=== PATIENT | male | born 1940 | race Caucasian/White ===

== ENCOUNTER 2019-01-22 07:34 | Day surgery (SDC) | payer MEDICARE, BC ==
[2019-01-17 13:00] VITALS: BMI 29.0
[~2019-01-22 07:34] MED LIST: LACTATED RINGERS 1,000 ML IV SCH; SODIUM CHLORIDE 0.9% 1,000 ML IV SCH
[2019-01-22 08:19] VITALS: RESP 16
[2019-01-22] MEDS ORDERED: DILTIAZEM ORAL 60 MG TAB PO STA (08:21)
[2019-01-22 08:40] LABS: Anion Gap 8 mmol/L; Blood Urea Nitrogen 23 mg/dL (9-20); Calcium 9.9 mg/dL (8.4-10.2); Carbon Dioxide 25 mmol/L (22-30); Chloride 107 mmol/L (98-107); Glucose 104 mg/dL (74-99); Sodium 140 mmol/L (137-145)
[2019-01-22 08:44] LABS: Potassium 4.8 mmol/L (3.5-5.1)
[2019-01-22] MEDS ORDERED: PROPOFOL 10 MG/ML 20 ML VIAL IV ONE (08:58)
[2019-01-22 09:26] VITALS: TEMP 97
[2019-01-22] MEDS ORDERED: SODIUM CHLORIDE 0.9% 1,000 ML IV SCH (09:30)
--- NOTE | 2019-01-22 09:44 | ECHOT ---
TRANSESOPHAGEAL ECHOCARDIOGRAM INDICATION: Typical atrial flutter. PROCEDURE NOTE: After obtaining informed consent, transesophageal echocardiogram was performed in left lateral position using an Omniplane probe. Local and IV sedation were obtained by the business test analyst. The patient tolerated the procedure well without any obvious immediate complications. FINDINGS: 1. There is no intracardiac thrombus within the left atrial appendage, left atrium, right atrium, right ventricle or left ventricle. 2. Left atrium appears mildly enlarged. Right atrium and right ventricle appear mildly enlarged. Left ventricle has normal size and systolic function with an ejection fraction of 60%. 3. Interatrial septum: There is no evidence of gjub-al-ztjaw shunt by color-flow Doppler or tisgq-gj-hiyj shunt by agitated saline contrast study. 4. Aortic valve is a 3-leaflet valve. There is no evidence of aortic stenosis or regurgitation. 5. Mitral valve shows trace mitral regurgitation. 6. Tricuspid valve shows trace tricuspid regurgitation. 7. Aorta shows ejpv-lc-kphnjxtk atherosclerotic changes. CONCLUSIONS: 1. No intracardiac thrombus. 2. Normal left ventricular function. PLAN: Proceed with cardioversion. MMODL / IJN: [id number] /
--- NOTE | 2019-01-22 09:47 | CE ---
CARDIAC ELECTROPHYSIOLOGY REPORT CARDIOVERSION NOTE: INDICATION: Typical atrial flutter. PROCEDURE: After obtaining informed consent and making sure that the patient does not have any intracardiac thrombus by transesophageal echo and adequate anticoagulation with oral anticoagulant, the patient underwent electrical cardioversion. Initially, he was shocked with 200 joules of synchronized DC current. He briefly converted to sinus rhythm, but was again going back into what appeared like atrial flutter fibrillation. I shocked him a second time following which he resumed stable sinus rhythm. Post conversion ECG will be obtained. PLAN: He will be discharged home on the anticoagulant. JOSHUA / ELIEL: [id number] /
[2019-01-22] MEDS ORDERED: SODIUM CHLORIDE 0.9% 500 ML 500 ML IV ONE (09:50)
[2019-01-22 11:25] VITALS: BP 118/68; PULSE 49
== END 2019-01-22 11:22 | disposition home or self-care (01) ==
LOC: CATHCVL 07:34
PROVIDERS: ATTEND Internal Medicine Cardiovascular Disease
DX: I48.3 Typical atrial flutter (principal); I08.1 Rheumatic disorders of both mitral and tricuspid valves; I70.0 Atherosclerosis of aorta; I10 Essential (primary) hypertension; Z72.0 Tobacco use; Z88.5 Allergy status to narcotic agent; Z88.0 Allergy status to penicillin; Z88.8 Allergy status to other drugs, medicaments and biological substances; Z79.01 Long term (current) use of anticoagulants; Z79.1 Long term (current) use of non-steroidal anti-inflammatories (NSAID); Z79.891 Long term (current) use of opiate analgesic; Z79.899 Other long term (current) drug therapy; J45.909 Unspecified asthma, uncomplicated; M06.9 Rheumatoid arthritis, unspecified; K21.9 Gastro-esophageal reflux disease without esophagitis
CPT/HCPCS: 93312; 93320; 93325; 92960; 80048; J2704

== ENCOUNTER → 2023-08-08 | Outpatient (CLI) | payer MEDICARE, BC ==
--- NOTE | 2023-08-08 21:51 | CT ---
EXAMINATION TYPE: CT lumbar spine wo con DATE OF EXAM: 08/08/2023 COMPARISON: None HISTORY: 83-year-old male M48.062, Low back pain, no injury, presurgical. TECHNIQUE: Contiguous axial scanning of the lumbar spine without IV contrast. Coronal and sagittal re constructions performed. CT DLP: 1853.3 mGycm Automated exposure control for dose reduction was used. FINDINGS: Pacer leads are noted. Strandy atelectasis or scarring in the lower lungs. Sigmoid diverticulosis. There appears to be some degenerative bony ankylosis at L5-S1. Hypertrophic facet arthropathy mid to lower lumbar spine. Degenerative disc disease L1-L5 levels with narrowed, desiccated, and bulging discs. Disc vacuum was present throughout. Most severe at L2-L3 with associated endplate sclerosis. Degenerative grade 1 retrolisthesis L1-L4 levels. Vertebral body heights are preserved. The graft-partially visualized in the lower thoracic spine. Baastrup's disease lumbar spine. There is overall moderate spinal canal stenosis L2-L3. Mild to moderate at L3-L4 and L4-L5. On the right, there is severe neuroforaminal stenosis at L3-L4, moderate to severe at L4-L5, moderate L2-L3, and mild at L5-S1. On the left, there is severe neural foraminal stenosis at L2-L3 and L4-L5. Moderate at L1-L2, L3-L4, L5-S1. IMPRESSION: 1. SEVERE DEGENERATIVE DISC DISEASE L1-L5 LEVELS, GREATEST AT L2-L3 WHERE THERE IS CORRESPONDING ENDP LATE SCLEROSIS. 2. 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 3. THERE IS DEGENERATIVE INTERBODY ANKYLOSIS INVOLVING BOTH ANTERIOR AND POSTERIOR ELEMENTS AT L5-S1. 4. POSSIBLE MODERATE SPINAL CANAL STENOSIS AT L2-L3; MILD TO MODERATE AT L3-L4 AND L4-L5. 5. VARIABLE NEUROFORAMINAL STENOSES OUTLINED ABOVE. SEVERE ON THE RIGHT AT L3-L4 AND MODERATE TO S EVERE ON THE RIGHT AT L4-L5. SEVERE ON THE LEFT AT L2-L3 AND L4-L5.
== END | disposition home or self-care (01) ==
LOC: RADCTMAIN 14:00
PROVIDERS: ATTEND Physical Medicine & Rehabilitation
DX: Z01.818 Encounter for other preprocedural examination (principal); M48.062 Spinal stenosis, lumbar region with neurogenic claudication; M43.16 Spondylolisthesis, lumbar region; M47.817 Spondylosis without myelopathy or radiculopathy, lumbosacral region; M47.816 Spondylosis without myelopathy or radiculopathy, lumbar region; M51.37 Other intervertebral disc degeneration, lumbosacral region; M51.26 Other intervertebral disc displacement, lumbar region; M41.26 Other idiopathic scoliosis, lumbar region; M96.1 Postlaminectomy syndrome, not elsewhere classified; M99.71 Connective tissue and disc stenosis of intervertebral foramina of cervical region
CPT/HCPCS: 72131

== ENCOUNTER 2023-10-26 10:04 | Day surgery (SDC) | payer MEDICARE, BC ==
[2023-10-20 12:41] VITALS: BMI 29.9
[~2023-10-26 10:04] MED LIST changes: +CLINDAMYCIN 600 MG in DEXTROSE 5% IN WATER 50 ML IVPB PRN; +DEXAMETHASONE SOD PHOSPHATE 4 MG/ML 1 ML VIAL IV ONE; +FAMOTIDINE 20 MG/2 ML VIAL IV PRN; +LIDOCAINE 1% (10MG/ML) FOR IV START INTRADERMA PRN; +ONDANSETRON 4 MG/2 ML VIAL IVP ONE; -SODIUM CHLORIDE 0.9% 1,000 ML IV SCH; +droPERidol 5 MG/2 ML VIAL IVP ONE; +fentaNYL (PF) 50 MCG/ML 2 ML AMP IV PRN
[2023-10-26] MEDS: OXYMETAZOLINE 0.05% NASL SPRAY 1 SPRAY BOTTLE EA NOSTRIL PRN ×5 (10:50→11:10)
[2023-10-26] MEDS ORDERED: SUCCINYLCHOLINE CHLORIDE 200 MG/10 ML VIAL IV ONE (12:11)
[2023-10-26] MEDS ORDERED: ePHEDrine 50 MG/ML 1 ML VIAL ONE (12:11)
[2023-10-26] MEDS ORDERED: fentaNYL (PF) 50 MCG/ML 2 ML AMP ONE (12:11)
[2023-10-26] MEDS ORDERED: PROPOFOL 10 MG/ML 20 ML VIAL IV ONE (12:11)
[2023-10-26] MEDS ORDERED: LIDOCAINE 1%-EPI 1:100,000 50 ML VIAL SUBMUCOSAL ONE ×2 (12:33)
[2023-10-26] MEDS ORDERED: BUPIVACAINE (PF) 0.5% 30 ML VIAL MISCELLANE ONE ×2 (12:33)
[2023-10-26] MEDS ORDERED: EPINEPHrine 1 MG/ML (MDV) 30 ML VIAL TOPICAL ONE (12:48)
[2023-10-26] MEDS ORDERED: FLUORESCEIN STRIPS 1 MG STRIP MISCELLANE ONE (12:48)
--- NOTE | 2023-10-26 13:14 | P.OP ---
Date of Procedure: 10/26/23 Preoperative Diagnosis: Chronic sinusitis right frontal, right ethmoid, right maxillary with right maxillary mycetoma Postoperative Diagnosis: Same Procedure(s) Performed: Functional endoscopic sinus surgery of the right frontal, total right ethmoidectomy, right maxillary antrostomy with removal of mycetoma diseased tissue Anesthesia: EMILIANO Surgeon: Haja Francisco Estimated Blood Loss (ml): 5 Pathology: other (Sinonasal) Condition: stable Disposition: PACU Indications for Procedure: Patient's been dealing with symptoms of chronic sinusitis that has not been amenable to medical therapy and sinonasal irrigations. Patient was found have chronic right frontal sinusitis ethmoid sinusitis and maxillary sinusitis with a large mycetoma and was unable to be removed in the office. Surgical removal was recommended. All risks, benefits, and alternative therapies were discussed. Consent was obtained and all questions were answered. Operative Findings: Severe disease of the right frontal ethmoid and maxillary sinus. Large mycetoma on the right Description of Procedure: Patient was taken to the operative room and placed in the supine position. A general inhalation anesthetic was administered to the patient by mask and subsequently intubated with a cuffed endotracheal tube by the department of anesthesia with a functioning IV line in place. Patient was monitored throughout the entire case by the department of anesthesia. The nose was topically decongested and anesthetized and the lining of the nose was injected with lidocaine 1% with epinephrine 1 100,000 injected the inferior middle turbinates uncinate process septum. 10 minutes were allowed wait for full vasoconstrictive effects to take place at this time and infraturbinal maxillary antrostomy was performed. We opened up the maxillary sinus on the right with endoscopic visualization utilizing a 0 [place] louise scope. The maxillary sinus was entered inferiorly and a large amount of mycetoma was removed. We then opened up the maxillary sinuses above the inferior turbinates with use of his degree [place] lousie scope probe microdebrider and Blasyl. Wide opening was obtained and large mycetoma was removed we removed a large amount of diseased tissue from the right maxillary sinus. After the right maxillary sinus was opened and all diseased tissue was removed along with removal of the mycetoma he then did a total ethmoidectomy and removed all right ethmoid septations. We followed the fovea frontalis through the basal lamella into the posterior ethmoid air cells and all diseased tissue and all ethmoid septations were removed. We then entered the frontal sinus we open the frontal sinuses we did a balloon assistance to white noted or even further then we entered the frontal sinus we remove diseased tissue and disease from the right frontal sinus and with a Samantha and joel zarate the right frontal sinus was opened wider. To summarize a right frontal sinuses opened explored and diseased tissue was removed we did a total ethmoidectomy on the right with removal of all ethmoid septations and diseased tissue we open up the maxillary sinuses both above and below the inferior turbinate we removed all mycetoma at all diseased tissue the patient tolerated this well and follow-up will be in the office in one week patient is to contact me if any problems should arise in the interim.
[2023-10-26 13:27] VITALS: TEMP 97.2
[2023-10-26 15:02] VITALS: BP 133/59; PULSE 65; RESP 18
== END 2023-10-26 14:50 | disposition home or self-care (01) ==
LOC: OR 10:04
PROVIDERS: ATTEND Otolaryngology
DX: J32.2 Chronic ethmoidal sinusitis (principal); J32.1 Chronic frontal sinusitis; B47.9 Mycetoma, unspecified
CPT/HCPCS: 30130; 31253; 31257; 31267; 87070; 87205; 87075; 87102; 87077; 87186; C1726; J0171; J0330; J1100; J2405; J3010; J3490; J2704; J0665

== ENCOUNTER 2025-02-03 15:50 | Observation (INO) | payer MEDICARE, BC ==
[2025-02-03 17:16] LABS: Basophils # (A) 0.04 10*3/uL (0.00-0.10); Basophils % (A) 0.4 %; Eosinophils # (A) 0.03 10*3/uL (0.04-0.35); Eosinophils % (A) 0.3 %; HCT 34.3 % (39.6-50.0); HGB 11.6 g/dL (13.0-17.0); Immature Platelet Fraction 6.2 % (1.1-6.1); Lymphocytes # (A) 1.23 10*3/uL (0.90-5.00); Lymphocytes % (A) 12.8 %; MCHC 33.8 g/dL (32.0-37.0); MCV 94.5 fL (80.0-97.0); Mean Platelet Volume 11.7 fL (9.5-12.2); Monocytes # (A) 1.05 10*3/uL (0.20-1.00); Monocytes % (A) 10.9 %; Neutrophils # (A) 7.16 10*3/uL (1.80-7.70); Neutrophils % (A) 74.6 %; Platelet Count 140 10*3/uL (140-440); RBC 3.63 10*6/uL (4.40-5.60); RDW 13.4 % (11.5-14.5); WBC 9.61 10*3/uL (4.50-10.00)
[2025-02-03 17:27] LABS: ALT 19 U/L (4-49); African American GFR (CKD) 69 (>60 ml/min/1.73 sqM); Albumin 3.7 g/dL (3.5-5.0); Anion Gap 7 mmol/L; Blood Urea Nitrogen 45 mg/dL (9-20); Calcium 9.3 mg/dL (8.4-10.2); Carbon Dioxide 27 mmol/L (22-30); Chloride 101 mmol/L (98-107); Creatine Kinase 65 U/L (55-170); Glucose 93 mg/dL (74-99); Non-African American GFR(CKD) 59 (>60 ml/min/1.73 sqM); Sodium 135 mmol/L (137-145); Total Bilirubin 0.8 mg/dL (0.2-1.3); Total Protein 6.4 g/dL (6.3-8.2)
--- NOTE | 2025-02-03 17:30 | XR ---
EXAMINATION TYPE: XR chest 2V DATE OF EXAM: 02/03/2025 5:25 PM COMPARISON: None TECHNIQUE: XR chest 2V Frontal and lateral views of the chest. CLINICAL INDICATION:Male, 84 years old with history of fall; pain FINDINGS: Lungs/Pleura: There is no evidence of pleural effusion, focal consolidation, or pneumothorax. Pulmonary vascularity: Unremarkable. Heart/mediastinum: Cardiomediastinal silhouette is enlarged. Atherosclerotic calcifications are seen in the aorta. Two lead cardiac conduction device overlying the left hemithorax with lead tips projec ting over the right ventricle and right atrium. Musculoskeletal: No acute osseous pathology. Degenerative changes of the thoracic spine. IMPRESSION: 1. No acute cardiopulmonary disease/process. 2. Cardiomegaly. [facility], , 02/03/2025 5:28 PM
[2025-02-03 17:31] LABS: INR 0.9 (<1.2); Prothrombin Time 10.5 sec (10.0-12.5)
--- NOTE | 2025-02-03 17:31 | XR ---
EXAMINATION TYPE: XR shoulder complete RT DATE OF EXAM: 02/03/2025 5:25 PM INDICATION: Patient age:Male; 84 years old; Reason for study: fall; pain COMPARISON: Chest radiograph of the same date. TECHNIQUE: The right shoulder was examined in AP, internally rotated and scapular Y projections. . FINDINGS: No evidence of acute osseous pathology, joint dislocation, or soft tissue swelling. AC joint arthropa thy with capsular hypertrophy. The remaining portions of the visualized chest are unremarkable. IMPRESSION: 1. No acute osseous pathology. 2. Mild AC joint arthropathy. [facility], , 02/03/2025 5:29 PM
[2025-02-03 17:32] LABS: AST 27 U/L (17-59); Magnesium 1.9 mg/dL (1.6-2.3); Phosphorus 3.2 mg/dL (2.5-4.5); Potassium 3.7 mmol/L (3.5-5.1)
[2025-02-03 17:33] LABS: Alkaline Phosphatase 81 U/L (38-126)
[2025-02-03 17:36] LABS: Partial Thromboplastin Time 20.4 sec (22.0-30.0)
--- NOTE | 2025-02-03 17:36 | CT ---
EXAMINATION TYPE: CT brain cspine wo con CT DLP: 1530.8 mGycm, Automated exposure control for dose reduction was used. DATE OF EXAM: 02/03/2025 5:24 PM COMPARISON: None.. CLINICAL INDICATION:Male, 84 years old with history of fall; fall, pain TECHNIQUE: Brain: Multiple axial CT images of the brain were obtained without IV contrast. Cspine: Axial CT images from the skull base to the inferior aspect of T2 we obtained without intraven ous contrast. Coronal and sagittal reformatted images were also reviewed. FINDINGS: Brain: Extra-axial spaces: No abnormal extra-axial fluid collections. Calcification along the falx and tento rium. Ventricular system: Within normal limits Cerebral parenchyma: Cerebral atrophy. No acute intraparenchymal hemorrhage or mass effect. The beasley -white junction is well differentiated. Scattered hypoattenuating areas are seen within the periventr icular white matter. Cerebellum: Unremarkable. Mass effect: No evidence of midline shift. Intracranial vasculature: Atherosclerotic calcifications of the intracranial vessels. Soft tissues: Normal. Calvarium/osseous structures: No depressed skull fracture. Degenerative changes of the left TMJ. Paranasal sinuses and mastoid air cells: The mastoid air cells are clear. Post surgical changes of th e bilateral maxillary sinuses and ethmoid sinuses. Minimal mucosal thickening of the left sphenoid si nus and right anterior maxillary sinus. Minimal mucosal thickening of the ethmoid sinuses. Visualized orbits: Bilateral aphakia Cervical spine: Fracture: None. Osseous structures: Multilevel degenerative disc disease changes with endplate spurring and disc oste ophyte complex's. Multilevel facet arthropathy. Vertebral alignment: Degenerative grade 1 anterolisthesis of C7 on T1. Spinal canal/Neural Foramina: Disc osteophyte complexes at C3-C4, C4-C5, C5-C6, C6-C7 with at least m ild spinal canal stenosis. Facet joint uncovertebral joint arthropathy scattered throughout the cervi micaela spine with varying degrees of neural foraminal stenosis. Neck soft tissues: Prevertebral soft tissues are within normal limits. Other: The airway is patent. The lung apices are clear. Bilateral carotid bulb calcifications. Partia l visualization of cardiac pacemaker leads. IMPRESSION: 1. No acute intracranial process. 2. Nonspecific white matter changes, likely secondary to chronic small vessel ischemic disease. 3. No evidence of cervical spine fracture. 4. Moderate multilevel degenerative disc disease. [facility], , 02/03/2025 5:34 PM
[2025-02-03] MEDS: SODIUM CHLORIDE 0.9% 1,000 ML IV ONE (17:56)
[2025-02-03 18:02] LABS: Appearance,Urine Clear (Clear); Bilirubin,Urine Negative (Negative); Blood,Urine Negative (Negative); Color,Urine Colorless; Glucose,Urine (UA) Negative (Negative); Ketones,Urine Negative (Negative); Leukocyte Esterase,Urine Negative (Negative); Nitrite,Urine Negative (Negative); Protein,Urine Negative (Negative); Specific Gravity,Urine 1.006 (1.001-1.035); Urobilinogen,Urine <2.0 mg/dL (<2.0)
--- NOTE | 2025-02-03 18:07 | ED ---
Fall HPI - General Chief Complaint: Fall Stated Complaint: Weakness Time Seen by Provider: 02/03/25 16:19 Source: patient, EMS, RN notes reviewed Mode of arrival: EMS - History of Present Illness Initial Comments: 84-year-old male with medical history significant for normal pacemaker and Watchman device. Patient reports he had abdominal discomfort yesterday and with unknown downtime. Per patient, not on anticoagulation baby aspirin. Patient's vice president safety is Dr. Los Nick. Patient reports some shortness of breath, but reports this is baseline for him. Patient reports some right shoulder pain as well. Patient denies fevers, chills, abdominal pain, urinary or bowel complaints. - Related Data Home Medications Medication Instructions Recorded Confirmed Omeprazole [PriLOSEC] 20 mg PO BID 03/26/14 02/03/25 Tamsulosin [Flomax] 0.4 mg PO DAILY 03/26/14 02/03/25 allopurinoL [Zyloprim] 300 mg PO DAILY 03/26/14 02/03/25 Losartan [Cozaar] 50 mg PO HS 07/20/15 02/03/25 Fluticasone Propionate 1 spr EA NOSTRIL DAILY 10/20/23 02/03/25 [Fluticasone Propionate Nasal [place]] Metoprolol Tartrate [Lopressor] 50 mg PO BID 10/20/23 02/03/25 Potassium Chloride [K-Tab ER] 20 meq PO DAILY 10/20/23 02/03/25 traMADol HCL 50 mg PO DAILY PRN 10/20/23 02/03/25 traZODone HCL 100 mg PO HS PRN 10/20/23 02/03/25 Aspirin 81 mg PO DAILY 02/03/25 02/03/25 Furosemide [Lasix] 20 mg PO BID 02/03/25 02/03/25 Gabapentin 300 mg PO TID 02/03/25 02/03/25 Magnesium Oxide [Mag-Ox] 400 mg PO BID 02/03/25 02/03/25 dilTIAZem HCL [Cartia Xt] 180 mg PO DAILY 02/03/25 02/03/25 metOLazone [Zaroxolyn] 5 mg PO DAILY 02/03/25 02/03/25 Allergies Allergy/AdvReac Type Severity Reaction Status Date / Time adhesive Allergy Rash/Hives Verified 02/03/25 20:23 codeine Allergy Nausea & Verified 02/03/25 20:23 Vomiting enalapril Allergy face on Verified 02/03/25 20:23 skin burned and peeled niacin Allergy Rash/Hives Verified 02/03/25 20:23 Penicillins Allergy Rash/Hives Verified 02/03/25 20:23 Review of Systems ROS Statement: Those systems with pertinent positive or pertinent negative responses have been documented in the HPI. ROS Other: All systems not noted in ROS Statement are negative. Constitutional: Denies: fever, chills ENT: Denies: ear pain, throat pain Respiratory: Reports: dyspnea. Denies: cough Cardiovascular: Denies: chest pain, palpitations Endocrine: Denies: fatigue Gastrointestinal: Denies: abdominal pain, nausea, vomiting Genitourinary: Denies: urgency, dysuria Neurological: Denies: headache, weakness Past Medical History Past Medical History: Atrial Fibrillation, Asthma, Cancer, GERD/Reflux, Hypertension, Pneumonia, Rheumatoid Arthritis (RA) Additional Past Medical History / Comment(s): gout, skin cancer History of Any Multi-Drug Resistant Organisms: None Reported Past Surgical History: Appendectomy, Back Surgery, Cholecystectomy, Tonsille ctomy Additional Past Surgical History / Comment(s): Tendon cut surgically in Lt foot, sinus surgery , small tumor removed from bone in RT hand, skin cancer removed from back Past Anesthesia/Blood Transfusion Reactions: Previous Problems w/ Anesthesia Additional Past Anesthesia/Blood Transfusion Reaction / Comment(s): severe headache post sinus surgery Past Psychological History: Anxiety Smoking Status: Former smoker Past Alcohol Use History: None Reported Past Drug Use History: None Reported - Past Family History Mother Additional Family Medical History / Comment(s): ALZHEIMER Father Family Medical History: Coronary Artery Disease (CAD) Sister(s) Family Medical History: Cancer General Exam Limitations: no limitations General appearance: alert, in no apparent distress Respiratory exam: Present: normal lung sounds bilaterally. Absent: respiratory distress, wheezes Cardiovascular Exam: Present: regular rate GI/Abdominal exam: Present: soft. Absent: distended, tenderness Neurological exam: Present: alert, oriented X3 Psychiatric exam: Present: normal affect, normal mood Skin exam: Present: other (Multiple ecchymosis noted on arms bilaterally) Course Vital Signs 02/03/25 02/03/25 02/03/25 16:01 16:17 17:57 Temperature 98.0 F Pulse Rate 66 74 60 Respiratory 16 12 12 Rate Blood Pressure 136/79 119/92 149/67 O2 Sat by Pulse 98 96 Oximetry 02/03/25 20:55 Temperature Pulse Rate 60 Respiratory 18 Rate Blood Pressure 124/69 O2 Sat by Pulse 98 Oximetry Medical Decision Making - Medical Decision Making Was pt. sent in by a medical professional or institution (, PA, SENIOR MILITARY ANALYST, urgent care, hospital, or half-way...) When possible be specific @ -No Did you speak to anyone other than the patient for history (EMS, parent, family, police, friend...)? What history was obtained from this source @ -No Did you review nursing and triage notes (agree or disagree)? Why? @ -I reviewed and agree with nursing and triage notes Were old charts reviewed (outside hosp., previous admission, EMS record, old EKG, old radiological studies, urgent care reports/EKG's, half-way records)? Report findings @ -No old charts were reviewed Differential Diagnosis? @ -Differential Syncope: Valvular disease, hypertrophic cardiomyopathy, pulmonary embolism, tamponade, tachycardia, bradycardia, [place], hypovolemia, hemorrhage, dissection, anemia, intracranial hemorrhage, seizure, hypoglycemia, carbon monoxide poisoning, this is not meant to be an all-inclusive list. EKG interpreted by me (3pts min.). @ -EKG shows paced rhythm, ventricular rate 64 bpm, QTc of 432 ms X-rays interpreted by me (1pt min.). @ -Chest x-ray shows cardiomegaly. Shoulder x-ray shows no acute pathology, mild AC joint arthropathy. CT interpreted by me (1pt min.). @ -CT brain and C-spine shows no acute intracranial process, no acute cervical spine fracture, moderate degenerative disc disease. CTA shows no evidence of pulmonary embolism, left atrial appendage occlusion device in appropriate position. U/S interpreted by me (1pt. min.). @ -None done What testing was considered but not performed or refused? (CT, X-rays, U/S, labs)? Why? @ -None What meds were considered but not given or refused? Why? @ -None Did you discuss the management of the patient with other professionals (professionals i.e. , MARIA ISABEL, SENIOR MILITARY ANALYST, lab, RT, psych nurse, sexual assault social worker, pants maker, teacher, customer service officer, case management director)? Give summary @ -Case was discussed with ED attending Dr. Swenson. Case was discussed with hospitalist Dr. Ramirez who accepted the admission. Was smoking cessation discussed for >3mins.? @ -No Was critical care preformed (if so, how long)? @ -No Were there social determinants of health that impacted care today? How? (Homelessness, low income, unemployed, alcoholism, drug addiction, transportation, low edu. Level, literacy, decrease access to med. care, custodial, rehab)? @ -No Was there de-escalation of care discussed even if they declined (Discuss DNR or withdrawal of care, Hospice)? DNR status @ -No What co-morbidities impacted this encounter? (DM, HTN, Smoking, COPD, CAD, Cancer, CVA, ARF, Chemo, Hep., AIDS, mental health diagnosis, sleep apnea, morbid obesity)? @ -Pacemaker, Watchman Was patient admitted / discharged? Hospital course, mention meds given and route, prescriptions, significant lab abnormalities, going to OR and other pertinent info. @ -Patient was admitted for observation. Cardiology was consulted for pacemaker evaluation. Undiagnosed new problem with uncertain prognosis? @ -No Drug Therapy requiring intensive monitoring for toxicity (Heparin, Nitro, Insulin, Cardizem)? @ -No Were any procedures done? @ -No Diagnosis/symptom? @ -Syncope Acute, or Chronic, or Acute on Chronic? @ -Acute Uncomplicated (without systemic symptoms) or Complicated (systemic symptoms)? @ -Default Side effects of treatment? @ -No Exacerbation, Progression, or Severe Exacerbation? @ -No Poses a threat to life or bodily function? How? (Chest pain, [place], [place], pneumonia, PE, COPD, DKA, ARF, appy, cholecystitis, CVA, Diverticulitis, Homicidal, Suicidal, threat to staff... and all critical care pts) @ -No - Lab Data Result diagrams: 02/03/25 17:10 02/03/25 17:10 Lab Results 02/03/25 02/03/25 02/03/25 Range/Units 17:10 17:10 17:10 WBC 9.61 (4.50-10.00) 10*3/uL RBC 3.63 L (4.40-5.60) 10*6/uL Hgb 11.6 L (13.0-17.0) g/dL Hct 34.3 L (39.6-50.0) % MCV 94.5 (80.0-97.0) fL MCH 32.0 (27.0-32.0) pg MCHC 33.8 (32.0-37.0) g/dL Plt Count 140 (140-440) 10*3/uL MPV 11.7 (9.5-12.2) fL Immature Gran % (Auto) 1.0 % Neutrophils % 74.6 % Lymphocytes % 12.8 % Monocytes % 10.9 % Eosinophils % 0.3 % Basophils % 0.4 % Immature Gran # 0.10 H (0.00-0.04) 10*3/uL Neutrophils # 7.16 (1.80-7.70) 10*3/uL Lymphocytes # 1.23 (0.90-5.00) 10*3/uL Monocytes # 1.05 H (0.20-1.00) 10*3/uL Eosinophils # 0.03 L (0.04-0.35) 10*3/uL Basophils # 0.04 (0.00-0.10) 10*3/uL Immature Plt Fraction 6.2 H (1.1-6.1) % PT 10.5 (10.0-12.5) sec INR 0.9 (<1.2) APTT 20.4 L (22.0-30.0) sec Sodium 135 L (137-145) mmol/L Potassium 3.7 (3.5-5.1) mmol/L Chloride 101 (98-107) mmol/L Carbon Dioxide 27 (22-30) mmol/L Anion Gap 7 mmol/L BUN 45 H (9-20) mg/dL Creatinine 1.12 (0.66-1.25) mg/dL Est GFR (CKD-EPI)AfAm 69 (>60 ml/min/1.73 sqM) Est GFR (CKD-EPI)NonAf 59 (>60 ml/min/1.73 sqM) Glucose 93 (74-99) mg/dL Calcium 9.3 (8.4-10.2) mg/dL Phosphorus 3.2 (2.5-4.5) mg/dL Magnesium 1.9 (1.6-2.3) mg/dL Total Bilirubin 0.8 (0.2-1.3) mg/dL AST 27 (17-59) U/L ALT 19 (4-49) U/L Alkaline Phosphatase 81 (38-126) U/L Creatine Kinase 65 (55-170) U/L Troponin I (0.000-0.034) ng/mL Total Protein 6.4 (6.3-8.2) g/dL Albumin 3.7 (3.5-5.0) g/dL Urine Color Urine Appearance (Clear) Urine pH (5.0-8.0) Ur Specific [place] (1.001-1.035) Urine Protein (Negative) Urine Glucose (UA) (Negative) Urine Ketones (Negative) Urine Blood (Negative) Urine Nitrite (Negative) Urine Bilirubin (Negative) Urine Urobilinogen (<2.0) mg/dL Ur Leukocyte Esterase (Negative) 02/03/25 02/03/25 Range/Units 17:10 17:51 WBC (4.50-10.00) 10*3/uL RBC (4.40-5.60) 10*6/uL Hgb (13.0-17.0) g/dL Hct (39.6-50.0) % MCV (80.0-97.0) fL MCH (27.0-32.0) pg MCHC (32.0-37.0) g/dL Plt Count (140-440) 10*3/uL MPV (9.5-12.2) fL Immature Gran % (Auto) % Neutrophils % % Lymphocytes % % Monocytes % % Eosinophils % % Basophils % % Immature Gran # (0.00-0.04) 10*3/uL Neutrophils # (1.80-7.70) 10*3/uL Lymphocytes # (0.90-5.00) 10*3/uL Monocytes # (0.20-1.00) 10*3/uL Eosinophils # (0.04-0.35) 10*3/uL Basophils # (0.00-0.10) 10*3/uL Immature Plt Fraction (1.1-6.1) % PT (10.0-12.5) sec INR (<1.2) APTT (22.0-30.0) sec Sodium (137-145) mmol/L Potassium (3.5-5.1) mmol/L Chloride (98-107) mmol/L Carbon Dioxide (22-30) mmol/L Anion Gap mmol/L BUN (9-20) mg/dL Creatinine (0.66-1.25) mg/dL Est GFR (CKD-EPI)AfAm (>60 ml/min/1.73 sqM) Est GFR (CKD-EPI)NonAf (>60 ml/min/1.73 sqM) Glucose (74-99) mg/dL Calcium (8.4-10.2) mg/dL Phosphorus (2.5-4.5) mg/dL Magnesium (1.6-2.3) mg/dL Total Bilirubin (0.2-1.3) mg/dL AST (17-59) U/L ALT (4-49) U/L Alkaline Phosphatase (38-126) U/L Creatine Kinase (55-170) U/L Troponin I 0.015 (0.000-0.034) ng/mL Total Protein (6.3-8.2) g/dL Albumin (3.5-5.0) g/dL Urine Color Colorless Urine Appearance Clear (Clear) Urine pH 6.0 (5.0-8.0) Ur Specific [place] 1.006 (1.001-1.035) Urine Protein Negative (Negative) Urine Glucose (UA) Negative (Negative) Urine Ketones Negative (Negative) Urine Blood Negative (Negative) Urine Nitrite Negative (Negative) Urine Bilirubin Negative (Negative) Urine Urobilinogen <2.0 (<2.0) mg/dL Ur Leukocyte Esterase Negative (Negative) Disposition Clinical Impression: Syncope Disposition: ADMITTED IP TO THIS [facility] Decision Date: 02/03/25 Decision Time: 19:00
--- NOTE | 2025-02-03 19:04 | CT ---
EXAMINATION TYPE: CT angio chest DATE OF EXAM: 02/03/2025 6:52 PM COMPARISON: Chest radiograph 01/26/2025. CLINICAL INDICATION: Male, 84 years old with history of Syncope; TECHNIQUE/CONTRAST: CTA scan of the thorax is performed with IV Contrast, patient injected with 80cc mL of Isovue 370, PA P images are created and reviewed these are created on a separate workstation.. CT DLP: 497.9 mGycm, Automated exposure control for dose reduction was used. FINDINGS: Lungs/Pleura: No evidence of focal consolidation, pleural effusion or pneumothorax. Airway: Large airways are patent. Heart: Cardiomegaly is demonstrated. Moderate to severe coronary artery calcifications present. Left atrial appendage occlusion device without evidence for contrast extending into the left atrial appen dage. Vasculature: There is no evidence for a filling defect within the pulmonary vasculature to suggest ac [place] pulmonary embolism. The pulmonary artery is of normal size. Mediastinum: No gross evidence of adenopathy. Musculoskeletal: Moderate disc degeneration changes are present throughout the thoracolumbar spine se condary to osteophyte formation and facet joint arthropathy. Bridging syndesmophytes anteriorly throu ghout the spine. Findings are compatible with diffuse idiopathic skeletal hyperostosis. Soft Tissues/lymph nodes: Cardiac conduction device with leads terminating in the right ventricle and right atrium. Lower neck: No significant findings. Upper Abdomen:. Gallbladder is surgically absent. IMPRESSION: 1. No evidence of pulmonary embolism. 2. Left atrial appendage occlusion device appears in appropriate position with occlusion of the left atrial appendage. 3. Moderate severe coronary artery atherosclerosis. 4. Diffuse idiopathic skeletal hyperostosis. 5. Mild cardiomegaly. Follow up recommendations for incidental pulmonary nodules, if there are any, are per [employer] or [employer]. https://radiopaedia.org/articles/ohrwqtqtds-dxvgnhl-[email or web address]?lang=us [facility], , 02/03/2025 7:01 PM
[2025-02-03] MEDS: SODIUM CHLORIDE 0.9% 1,000 ML IV SCH (22:18)
[2025-02-03] MEDS: GABAPENTIN 300 MG CAP PO SCH (22:57)
[2025-02-03] MEDS: LOSARTAN 50 MG TAB PO SCH (22:57)
[2025-02-04 07:15] LABS: Basophils # (A) 0.01 10*3/uL (0.00-0.10); Basophils % (A) 0.1 %; Eosinophils # (A) 0.03 10*3/uL (0.04-0.35); Eosinophils % (A) 0.4 %; HCT 35.3 % (39.6-50.0); HGB 11.9 g/dL (13.0-17.0); Lymphocytes # (A) 0.98 10*3/uL (0.90-5.00); Lymphocytes % (A) 13.4 %; MCH 32.6 pg (27.0-32.0); MCHC 33.7 g/dL (32.0-37.0); MCV 96.7 fL (80.0-97.0); Mean Platelet Volume 12.2 fL (9.5-12.2); Monocytes # (A) 0.69 10*3/uL (0.20-1.00); Monocytes % (A) 9.4 %; Neutrophils # (A) 5.55 10*3/uL (1.80-7.70); Neutrophils % (A) 75.6 %; Platelet Count 129 10*3/uL (140-440); RBC 3.65 10*6/uL (4.40-5.60); RDW 13.4 % (11.5-14.5); WBC 7.34 10*3/uL (4.50-10.00)
[2025-02-04 07:35] LABS: ALT 19 U/L (4-49); AST 22 U/L (17-59); African American GFR (CKD) 75 (>60 ml/min/1.73 sqM); Albumin 3.6 g/dL (3.5-5.0); Alkaline Phosphatase 95 U/L (38-126); Anion Gap 6 mmol/L; Blood Urea Nitrogen 32 mg/dL (9-20); Calcium 9.5 mg/dL (8.4-10.2); Carbon Dioxide 29 mmol/L (22-30); Chloride 102 mmol/L (98-107); Glucose 128 mg/dL (74-99); Non-African American GFR(CKD) 65 (>60 ml/min/1.73 sqM); Potassium 3.8 mmol/L (3.5-5.1); Sodium 137 mmol/L (137-145); Total Bilirubin 0.7 mg/dL (0.2-1.3); Total Protein 6.2 g/dL (6.3-8.2)
[2025-02-04] MEDS: TAMSULOSIN 0.4 MG CAP.ER.24H PO SCH (09:11)
[2025-02-04] MEDS: allopurinoL 100 MG TAB PO SCH (09:11)
[2025-02-04] MEDS: METOPROLOL TARTRATE 50 MG TAB PO SCH (09:11)
[2025-02-04] MEDS: DILTIAZEM CD 180 MG CAP.ER.24H PO SCH (09:11)
[2025-02-04] MEDS: PANTOPRAZOLE 40 MG TABLET PO SCH (09:12)
[2025-02-04] MEDS: ASPIRIN 81 MG PO SCH (09:12)
[2025-02-04] MEDS: metOLazone 5 MG TAB PO SCH (11:11)
[2025-02-04] MEDS: ENOXAPARIN 40 MG/0.4 ML SYRINGE SQ SCH (11:12)
[2025-02-04] MEDS: FLUTICASONE NASAL 50MCG/SPRAY 16GM BTL EA NOSTRIL SCH (12:24)
--- NOTE | 2025-02-04 12:39 | P.CRDCN ---
History of Present Illness Consult date: 02/04/25 Reason for Consult (text): Pacemaker, watchman History of present illness: This is an 84-year-old male patient of Dr. Los Nick in [place] with past medical history of atrial fibrillation status post Watchman placed in June 2024, hypertension, GERD, rheumatoid arthritis. We have been asked to evaluate the patient for pacemaker and Watchman device. Patient gives history that he was walking and carrying dinner to the table and the next thing he remembers he woke up approximately an hour later on the floor. He states he has been feeling tired lately. He sometimes feels lightheaded and has to sit down and rest. He denies any weight loss or weight gain. Regarding blood pressure, he states he has a home care nurse that checks it several times a week and it has been normal. Regarding atrial fibrillation, patient states he is not able to feel when he goes in and out of atrial fibrillation. Blood pressure 117/68, heart rate 76, pulse ox 96% on room air. Patient is seen today in the emergency center waiting for bed on the observation unit. -EKG: Paced rhythm -Chest x-ray: No acute process. Cardiomegaly. -Right shoulder x-ray: No acute pathology. Mild AC joint arthropathy. -CTA chest: No pulmonary embolism. Left atrial appendage occlusion device appears in appropriate position with occlusion of the left atrial appendage. Moderate severe coronary artery atherosclerosis. Diffuse idiopathic skeletal hyperostosis. Mild cardiomegaly. -CT brain and cervical spine: No acute intracranial process. Chronic small vessel ischemic disease. No cervical spine fracture. Multilevel DDD. -Laboratory studies: BC 7.3, hemoglobin 9.9. Creatinine 1.04. Troponin negative x 2. -Home cardiac medications: Aspirin 81 mg daily, diltiazem 180 mg daily, Lasix 20 mg twice daily, losartan 50 mg at bedtime, magnesium oxide 400 mg twice daily, metolazone 5 mg daily, metoprolol tartrate 50 mg twice daily, potassium chloride 20 mill equivalents daily. Review Of Systems: At the time of my exam: CONSTITUTIONAL: Denies fever or chills. HEENT: Denies blurred vision, vision changes, or eye pain. Denies hemoptysis CARDIOVASCULAR: Denies chest pain. Denies orthopnea. Denies PND. Denies palpitations RESPIRATORY: Denies shortness of breath. GASTROINTESTINAL: Denies abdominal pain. Denies nausea or vomiting. HEMATOLOGIC: Denies bleeding disorders. GENITOURINARY: Denies any blood in urine. SKIN: Denies puritis. Denies rash. Physical examination: Gen: This is an 84-year-old male in no acute distress. VS: reviewed HEENT: Head is atraumatic, normocephalic. Pupils equal, round. Sclerae is anicteric. NECK: Supple. No JVD. LUNGS: Clear to auscultation. No wheezes or rhonchi. No intercostal retractions. HEART: Regular rate and rhythm. No murmur. ABDOMEN: Soft No tenderness. EXTREMITIES: No pedal edema. No calf tenderness. NEUROLOGICAL: Patient is awake, alert and oriented x3. Assessment: Syncopal episode of unclear etiology Atrial fibrillation status post Watchman procedure History of pacemaker implantation Hypertension GERD Rheumatoid arthritis Plan: Resume patient's home cardiac medications Interrogate pacemaker Obtain 2-D echocardiogram and Doppler study to assess cardiac structure and function If interrogation and echocardiogram are unremarkable, patient is cleared for discharge from cardiology and may follow-up with his primary hone operator or locally with Dr. Suarez in 1 week. Thank you kindly for this consultation. Nurse practitioner note has been reviewed, I agree with documented findings and plan of care. Patient was seen and examined. Past Medical History Past Medical History: Atrial Fibrillation, Asthma, Cancer, GERD/Reflux, Hypertension, Pneumonia, Rheumatoid Arthritis (RA) Additional Past Medical History / Comment(s): gout, skin cancer History of Any Multi-Drug Resistant Organisms: None Reported Past Surgical History: Appendectomy, Back Surgery, Cholecystectomy, Tonsillectomy Additional Past Surgical History / Comment(s): Tendon cut surgically in Lt foot, sinus surgery , small tumor removed from bone in RT hand, skin cancer removed from back Past Anesthesia/Blood Transfusion Reactions: Previous Problems w/ Anesthesia Additional Past Anesthesia/Blood Transfusion Reaction / Comment(s): severe headache post sinus surgery Past Psychological History: Anxiety Smoking Status: Former smoker Past Alcohol Use History: None Reported Past Drug Use History: None Reported - Past Family History Mother Additional Family Medical History / Comment(s): ALZHEIMER Father Family Medical History: Coronary Artery Disease (CAD) Sister(s) Family Medical History: Cancer Medications and Allergies Home Medications Medication Instructions Recorded Confirmed Type Omeprazole [PriLOSEC] 20 mg PO BID 03/26/14 02/03/25 History Tamsulosin [Flomax] 0.4 mg PO DAILY 03/26/14 02/03/25 History allopurinoL [Zyloprim] 300 mg PO DAILY 03/26/14 02/03/25 History Losartan [Cozaar] 50 mg PO HS 07/20/15 02/03/25 History Fluticasone Propionate 1 spr EA NOSTRIL DAILY 10/20/23 02/03/25 History [Fluticasone Propionate Nasal [place]] Metoprolol Tartrate [Lopressor] 50 mg PO BID 10/20/23 02/03/25 History Potassium Chloride [K-Tab ER] 20 meq PO DAILY 10/20/23 02/03/25 History traMADol HCL 50 mg PO DAILY PRN 10/20/23 02/03/25 History traZODone HCL 100 mg PO HS PRN 10/20/23 02/03/25 History Aspirin 81 mg PO DAILY 02/03/25 02/03/25 History Furosemide [Lasix] 20 mg PO BID 02/03/25 02/03/25 History Gabapentin 300 mg PO TID 02/03/25 02/03/25 History Magnesium Oxide [Mag-Ox] 400 mg PO BID 02/03/25 02/03/25 History dilTIAZem HCL [Cartia Xt] 180 mg PO DAILY 02/03/25 02/03/25 History metOLazone [Zaroxolyn] 5 mg PO DAILY 02/03/25 02/03/25 History Allergies Allergy/AdvReac Type Severity Reaction Status Date / Time adhesive Allergy Rash/Hives Verified 02/03/25 20:23 codeine Allergy Nausea & Verified 02/03/25 20:23 Vomiting enalapril Allergy face on Verified 02/03/25 20:23 skin burned and peeled niacin Allergy Rash/Hives Verified 02/03/25 20:23 Penicillins Allergy Rash/Hives Verified 02/03/25 20:23 Physical Exam Vitals: Vital Signs Temp Pulse Resp BP Pulse Ox 02/04/25 08:00 66 20 137/69 97 02/04/25 06:42 66 18 119/60 99 02/03/25 20:55 60 18 124/69 98 02/03/25 17:57 60 12 149/67 96 02/03/25 16:17 74 12 119/92 02/03/25 16:01 98.0 F 66 16 136/79 98 Intake and Output 02/03/25 02/04/25 02/04/25 22:59 06:59 14:59 Other: Weight 103.419 kg Results 02/04/25 06:48 02/04/25 06:48 Cardiac Enzymes 02/03/25 02/03/25 02/04/25 Range/Units 17:10 17:10 06:48 AST 27 22 (17-59) U/L Troponin I 0.015 (0.000-0.034) ng/mL Coagulation 02/03/25 Range/Units 17:10 PT 10.5 (10.0-12.5) sec APTT 20.4 L (22.0-30.0) sec CBC 02/03/25 02/04/25 Range/Units 17:10 06:48 WBC 9.61 7.34 (4.50-10.00) 10*3/uL RBC 3.63 L 3.65 L (4.40-5.60) 10*6/uL Hgb 11.6 L 11.9 L (13.0-17.0) g/dL Hct 34.3 L 35.3 L (39.6-50.0) % Plt Count 140 129 L (140-440) 10*3/uL Comprehensive Metabolic Panel 02/03/25 02/04/25 Range/Units 17:10 06:48 Sodium 135 L 137 (137-145) mmol/L Potassium 3.7 3.8 (3.5-5.1) mmol/L Chloride 101 102 (98-107) mmol/L Carbon Dioxide 27 29 (22-30) mmol/L BUN 45 H 32 H (9-20) mg/dL Creatinine 1.12 1.04 (0.66-1.25) mg/dL Glucose 93 128 H (74-99) mg/dL Calcium 9.3 9.5 (8.4-10.2) mg/dL AST 27 22 (17-59) U/L ALT 19 19 (4-49) U/L Alkaline Phosphatase 81 95 (38-126) U/L Total Protein 6.4 6.2 L (6.3-8.2) g/dL Albumin 3.7 3.6 (3.5-5.0) g/dL Current Medications Generic Name Dose Route Start Last Admin Trade Name Freq PRN Reason Stop Dose Admin Allopurinol 50 mg 02/04/25 09:00 02/04/25 09:11 Allopurinol 100 Mg Tab PO 50 mg DAILY [facility] Administration Aspirin 81 mg 02/04/25 09:00 02/04/25 09:12 Aspirin 81 Mg PO 81 mg DAILY [facility] Administration Diltiazem HCl 180 mg 02/04/25 09:00 02/04/25 09:11 Diltiazem Cd 180 Mg Cap.Er.24h PO 180 mg DAILY [facility] Administration Enoxaparin Sodium 40 mg 02/04/25 10:45 Enoxaparin 40 Mg/0.4 Ml Syringe SQ DAILY [facility] Fluticasone Propionate 1 spray 02/04/25 09:00 Fluticasone Nasal 50mcg/[place] 16gm Btl EA NOSTRIL DAILY [facility] Gabapentin 300 mg 02/03/25 22:45 02/04/25 09:11 Gabapentin 300 Mg Cap PO 300 mg TID [facility] Administration Sodium Chloride 1,000 mls @ 80 mls/hr 02/03/25 20:30 02/04/25 10:24 Saline 0.9% IV Not Given .[id number] [facility] Losartan Potassium 50 mg 02/03/25 22:45 02/03/25 22:57 Losartan 50 Mg Tab PO 50 mg HS [facility] Administration Metolazone 5 mg 02/04/25 09:00 Metolazone 5 Mg Tab PO DAILY [facility] Metoprolol Tartrate 50 mg 02/04/25 09:00 02/04/25 09:11 Metoprolol Tartrate 50 Mg Tab PO 50 mg BID [facility] Administration Pantoprazole Sodium 40 mg 02/04/25 07:30 02/04/25 09:12 Pantoprazole 40 Mg Tablet PO 40 mg [id number] [facility] Administration Tamsulosin HCl 0.4 mg 02/04/25 09:00 02/04/25 09:11 Tamsulosin 0.4 Mg Cap.Er.24h PO 0.4 mg DAILY [facility] Administration Tramadol HCl 50 mg 02/03/25 22:48 Tramadol 50 Mg Tab PO DAILY PRN Pain Trazodone HCl 100 mg 02/03/25 22:35 Trazodone Hcl 100 Mg Tab PO HS PRN Insomnia Intake and Output 02/03/25 02/04/25 02/04/25 22:59 06:59 14:59 Other: Weight 103.419 kg 02/04/25 06:48 02/04/25 06:48
--- NOTE | 2025-02-04 16:06 | P.HPIM ---
History of Present Illness H&P Date: 02/04/25 Chief Complaint: Passed out Very pleasant 84-year-old patient who follows with Dr. Darnell Ventura. Chronic medical condition include atrial fibrillation, asthma, GERD, hypertension, rheumatoid arthritis, gout. Patient had a watchman placed in June 2024. And also a has a pacemaker. Yesterday he warmed up some soup and a microwave was walking back to his dining table and does not remember anything after that. He passed out. He thinks he may be on the ground for about 1 hour. He used his cell phone to call the EMS. Does not remember any chest pain palpitations prior to that. Patient's been having feelings of lightheadedness off and on. Patient does follow with his e business consultant , out of [place]. Review of systems: GEN.: None EYES: None HEENT: None NECK: None RESPIRATORY: None CARDIOVASCULAR: None GASTROINTESTINAL: None GENITOURINARY: None MUSCULOSKELETAL: None LYMPHATICS: None HEMATOLOGICAL: None PSYCHIATRY: None NEUROLOGICAL: No focal symptoms Social history: Lives alone. 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 Did smoke in the remote past Physical examination: VITAL SIGNS: 98, 66, 16, 136 x 79, 98% room air GENERAL: BMI 32.7, sitting up comfortable. EYES: Pupils equal. Conjunctiva sophie l. HEENT: External appearance of nose and ears normal, oral cavity grossly normal. Slight bruising on top of the head posteriorly. NECK: JVD not raised; masses not palpable. HEART: First and second heart sounds are normal; no edema. LUNGS: Respiratory rate normal; clear to auscultation. ABDOMEN: Soft, nontender, liver spleen not palpable, no masses palpable. PSYCH: Alert and oriented x3; mood and affect sophie l. MUSCULOSKELETAL:No Clubbing/cyanosis;muscles-grossly intact NEUROLOGICAL: Cranial nerves grossly intact; no facial asymmetry, power and sensation grossly intact. LYMPHATICS: No lymph nodes palpable in the axilla and neck INVESTIGATIONS, reviewed in the clinical context: February 04, 2025: White count 7.3 hemoglobin 11.9 platelets 129 sodium 137 potassium 3.8 BUN 32 creatinine 1.04 Troponin I 0.015, 0.014 UA: Negative Chest x-ray film personally reviewed by me-borderline cardiomegaly. Pacemaker. Head cervical spine CT: DJD CT angio chest: Negative PE. Left atrial appendage occlusion devicemoderate severe coronary artery atherosclerosis. EKG tracing personally reviewed by me-atrial and ventricular pacemaker Assessment plan: - Episode of spontaneous unconsciousness. Patient thinks he was passed out for about 1 hour. Has been feeling lightheaded. Intermittently. Pacemaker check. Cardiology consulted Patient is on Zaroxolyn, and Lasix. Patient elevated BUN. Likely prerenal. That could explain his dizziness intermittent. Will DC Zaroxolyn. Patient will receive IV fluids. Put the patient on 2000 cc fluid restriction - Essential hypertension Cardizem CD1 80 mg a day. Lopressor 50 mg twice daily. Cozaar 50 mg nightly - Chronic insomnia Trazodone as needed - Chronic gout Allopurinol - BPH Flomax 0.4 mg a day - Atrial fibrillation history of Watchman procedure. - Pacemaker - GERD Prilosec - Full code Past Medical History Past Medical History: Atrial Fibrillation, Asthma, Cancer, GERD/Reflux, Hypertension, Pneumonia, Rheumatoid Arthritis (RA) Additional Past Medical History / Comment(s): gout, skin cancer History of Any Multi-Drug Resistant Organisms: None Reported Past Surgical History: Appendectomy, Back Surgery, Cholecystectomy, Tonsillectomy Additional Past Surgical History / Comment(s): Tendon cut surgically in Lt foot, sinus surgery , small tumor removed from bone in RT hand, skin cancer removed from back Past Anesthesia/Blood Transfusion Reactions: Previous Problems w/ Anesthesia Additional Past Anesthesia/Blood Transfusion Reaction / Comment(s): severe headache post sinus surgery Past Psychological History: Anxiety Smoking Status: Former smoker Past Alcohol Use History: None Reported Past Drug Use History: None Reported - Past Family History Mother Additional Family Medical History / Comment(s): ALZHEIMER Father Family Medical History: Coronary Artery Disease (CAD) Sister(s) Family Medical History: Cancer Medications and Allergies Home Medications Medication Instructions Recorded Confirmed Type Omeprazole [PriLOSEC] 20 mg PO BID 03/26/14 02/03/25 History Tamsulosin [Flomax] 0.4 mg PO DAILY 03/26/14 02/03/25 History allopurinoL [Zyloprim] 300 mg PO DAILY 03/26/14 02/03/25 History Losartan [Cozaar] 50 mg PO HS 07/20/15 02/03/25 History Fluticasone Propionate 1 spr EA NOSTRIL DAILY 10/20/23 02/03/25 History [Fluticasone Propionate Nasal [place]] Metoprolol Tartrate [Lopressor] 50 mg PO BID 10/20/23 02/03/25 History Potassium Chloride [K-Tab ER] 20 meq PO DAILY 10/20/23 02/03/25 History traMADol HCL 50 mg PO DAILY PRN 10/20/23 02/03/25 History traZODone HCL 100 mg PO HS PRN 10/20/23 02/03/25 History Aspirin 81 mg PO DAILY 02/03/25 02/03/25 History Furosemide [Lasix] 20 mg PO BID 02/03/25 02/03/25 History Gabapentin 300 mg PO TID 02/03/25 02/03/25 History Magnesium Oxide [Mag-Ox] 400 mg PO BID 02/03/25 02/03/25 History dilTIAZem HCL [Cartia Xt] 180 mg PO DAILY 02/03/25 02/03/25 History metOLazone [Zaroxolyn] 5 mg PO DAILY 02/03/25 02/03/25 History Allergies Allergy/AdvReac Type Severity Reaction Status Date / Time adhesive Allergy Rash/Hives Verified 02/03/25 20:23 codeine Allergy Nausea & Verified 02/03/25 20:23 Vomiting enalapril Allergy face on Verified 02/03/25 20:23 skin burned and peeled niacin Allergy Rash/Hives Verified 02/03/25 20:23 Penicillins Allergy Rash/Hives Verified 02/03/25 20:23 Physical Exam Vitals: Vital Signs Temp Pulse Resp BP Pulse Ox 02/04/25 08:00 66 20 137/69 97 02/04/25 06:42 66 18 119/60 99 02/03/25 20:55 60 18 124/69 98 02/03/25 17:57 60 12 149/67 96 02/03/25 16:17 74 12 119/92 02/03/25 16:01 98.0 F 66 16 136/79 98 Intake and Output 02/03/25 02/04/25 02/04/25 22:59 06:59 14:59 Other: Weight 103.419 kg Results CBC & Chem 7: 02/04/25 06:48 02/04/25 06:48 Labs: Abnormal Lab Results - Last 24 Hours (Table) 02/03/25 02/03/25 02/03/25 Range/Units 17:10 17:10 17:10 RBC 3.63 L (4.40-5.60) 10*6/uL Hgb 11.6 L (13.0-17.0) g/dL Hct 34.3 L (39.6-50.0) % MCH (27.0-32.0) pg Plt Count (140-440) 10*3/uL Immature Gran # 0.10 H (0.00-0.04) 10*3/uL Monocytes # 1.05 H (0.20-1.00) 10*3/uL Eosinophils # 0.03 L (0.04-0.35) 10*3/uL Immature Plt Fraction 6.2 H (1.1-6.1) % APTT 20.4 L (22.0-30.0) sec Sodium 135 L (137-145) mmol/L BUN 45 H (9-20) mg/dL Glucose (74-99) mg/dL Total Protein (6.3-8.2) g/dL 02/04/25 02/04/25 Range/Units 06:48 06:48 RBC 3.65 L (4.40-5.60) 10*6/uL Hgb 11.9 L (13.0-17.0) g/dL Hct 35.3 L (39.6-50.0) % MCH 32.6 H (27.0-32.0) pg Plt Count 129 L (140-440) 10*3/uL Immature Gran # 0.08 H (0.00-0.04) 10*3/uL Monocytes # (0.20-1.00) 10*3/uL Eosinophils # 0.03 L (0.04-0.35) 10*3/uL Immature Plt Fraction (1.1-6.1) % APTT (22.0-30.0) sec Sodium (137-145) mmol/L BUN 32 H (9-20) mg/dL Glucose 128 H (74-99) mg/dL Total Protein 6.2 L (6.3-8.2) g/dL
[2025-02-04] MEDS: FUROSEMIDE 20 MG TAB PO SCH (17:19)
[2025-02-04] MEDS: traMADol 50 MG TAB PO PRN (21:01)
[2025-02-04] MEDS: traZODone HCL 100 MG TAB PO PRN (21:01)
[2025-02-05 05:27] LABS: African American GFR (CKD) >90 (>60 ml/min/1.73 sqM); Anion Gap 9 mmol/L; Blood Urea Nitrogen 27 mg/dL (9-20); Calcium 9.6 mg/dL (8.4-10.2); Carbon Dioxide 27 mmol/L (22-30); Chloride 98 mmol/L (98-107); Glucose 129 mg/dL (74-99); Non-African American GFR(CKD) 79 (>60 ml/min/1.73 sqM); Potassium 3.6 mmol/L (3.5-5.1); Sodium 134 mmol/L (137-145)
[2025-02-05 07:54] VITALS: RESP 17
[2025-02-05] MEDS: POTASSIUM CHLORIDE ER 20 MEQ TAB.ER PO SCH (08:31)
[2025-02-05] MEDS: MAGNESIUM OXIDE 400 MG TAB PO SCH (08:31)
--- NOTE | 2025-02-05 12:51 | P.PN ---
Subjective Progress Note Date: 02/05/25 Reason for Consult (text): Pacemaker, watchman History of present illness: This is an 84-year-old male patient of Dr. Los Nick in [place] with past medical history of atrial fibrillation status post Watchman placed in June 2024, hypertension, GERD, rheumatoid arthritis. We have been asked to evaluate the patient for pacemaker and Watchman device. Patient gives history that he was walking and carrying dinner to the table and the next thing he remembers he woke up approximately an hour later on the floor. He states he has been feeling tired lately. He sometimes feels lightheaded and has to sit down and rest. He denies any weight loss or weight gain. Regarding blood pressure, he states he has a home care nurse that checks it several times a week and it has been normal. Regarding atrial fibrillation, patient states he is not able to feel when he goes in and out of atrial fibrillation. Blood pressure 117/68, heart rate 76, pulse ox 96% on room air. Patient is seen today in the emergency center waiting for bed on the observation unit. -EKG: Paced rhythm -Chest x-ray: No acute process. Cardiomegaly. -Right shoulder x-ray: No acute pathology. Mild AC joint arthropathy. -CTA chest: No pulmonary embolism. Left atrial appendage occlusion device appears in appropriate position with occlusion of the left atrial appendage. Moderate severe coronary artery atherosclerosis. Diffuse idiopathic skeletal hyperostosis. Mild cardiomegaly. -CT brain and cervical spine: No acute intracranial process. Chronic small vessel ischemic disease. No cervical spine fracture. Multilevel DDD. -Laboratory studies: BC 7.3, hemoglobin 9.9. Creatinine 1.04. Troponin negative x 2. -Home cardiac medications: Aspirin 81 mg daily, diltiazem 180 mg daily, Lasix 20 mg twice daily, losartan 50 mg at bedtime, magnesium oxide 400 mg twice daily, metolazone 5 mg daily, metoprolol tartrate 50 mg twice daily, potassium chloride 20 mill equivalents daily. 02/05 Patient seen and examined. Reviewed pacemaker interrogation finding nothing c oncerning. Patient denies any lightheadedness or dizziness. He states he has had the feeling of being tired for the past 2 months. He denies chest pain and no palpitations. No abnormalities noted on telemetry. Vital signs have been stable with blood pressure 129/72, heart rate in the 60s, pulse ox 99% on room air. Echocardiogram is pending Physical examination: Gen: This is an 84-year-old male in no acute distress. VS: reviewed HEENT: Head is atraumatic, normocephalic. Pupils equal, round. Sclerae is anicteric. NECK: Supple. No JVD. LUNGS: Clear to auscultation. No wheezes or rhonchi. No intercostal retractions. HEART: Regular rate and rhythm. No murmur. ABDOMEN: Soft No tenderness. EXTREMITIES: + pedal edema. No calf tenderness. NEUROLOGICAL: Patient is awake, alert and oriented x3. Assessment: Syncopal episode of unclear etiology Atrial fibrillation status post Watchman procedure History of pacemaker implantation Hypertension GERD Rheumatoid arthritis Plan: Continue patient's home cardiac medications Interrogation of pacemaker reviewed with no episodes of Afib, no arrhythmias, pacing appropriately Obtain 2-D echocardiogram and Doppler study to assess cardiac structure and function If echocardiogram is unremarkable, patient is cleared for discharge from cardiology and may follow-up with his primary order manager or locally with Dr. Suarez in 1 week. Thank you kindly for this consultation. Nurse practitioner note has been reviewed, I agree with documented findings and plan of care. Patient was seen and examined. Objective - Vital Signs Vital signs: Vital Signs Temp 98.6 F 02/05/25 07:14 Pulse 65 02/05/25 07:14 Resp 17 02/05/25 07:14 BP 129/72 02/05/25 07:14 Pulse Ox 99 02/05/25 07:14 FiO2 Intake & Output 02/04/25 02/05/25 02/05/25 18:59 06:59 18:59 Weight 103.419 kg Other: Voiding Method Toilet # Voids 2 - Labs CBC & Chem 7: 02/04/25 06:48 02/05/25 04:44 Labs: Abnormal Lab Results - Last 24 Hours (Table) 02/05/25 Range/Units 04:44 Sodium 134 L (137-145) mmol/L BUN 27 H (9-20) mg/dL Glucose 129 H (74-99) mg/dL
[2025-02-05 15:37] VITALS: BP 122/62; PULSE 75; TEMP 97.4
--- NOTE | 2025-02-05 16:31 | CA ---
Transthoracic Echo Report Name: Joshua Miguel Age: 84 Gender: M : 1940 Exam Date: 02/05/2025 09:33 Exam Location: [place] [facility] Ht (in): 65 Wt (lb): 230 Ordering Physician: Rach Ashford Attending/Referring Phys: [id number], Dejon Wax Room Supervisor Rossy Feliz, RAHEEM Procedure CPT: Indications: LVF Cardiac Hx: Pacemaker, Watchman Technical Quality: Fair Contrast 1: Definity Total Dose (mL): 2 Contrast 2: Total Dose (mL): MEASUREMENTS (Male / Female) Normal Values 2D ECHO LV Diastolic Diameter PLAX 4.8 cm 4.2 - 5.9 / 3.9 - 5.3 cm LV Systolic Diameter PLAX 3.6 cm IVS Diastolic Thickness 1.3 cm 0.6 - 1.0 / 0.6 - 0.9 cm LVPW Diastolic Thickness 1.3 cm 0.6 - 1.0 / 0.6 - 0.9 cm LV Relative Wall Thickness 0.6 RV Internal Dim ED PLAX 2.4 cm LA Systolic Diameter LX 4.4 cm 3.0 - 4.0 / 2.7 - 3.8 cm M-MODE Aortic Root Diameter MM 3.8 cm LA Systolic Diameter MM 3.1 cm LA Ao Ratio MM 0.8 AV Cusp Separation MM 2.0 cm DOPPLER Mitral E Point Velocity 78.6 cm/s Mitral A Point Velocity 84.8 cm/s Mitral E to A Ratio 0.9 MV Deceleration Time 321.7 ms MV E' Velocity 6.6 cm/s Mitral E to MV E' Ratio 11.9 TR Peak Velocity 275.9 cm/s TR Peak Gradient 30.5 mmHg Right Atrial Pressure 10.0 mmHg Pulmonary Artery Systolic Pressu 40.5 mmHg Right Ventricular Systolic Press 40.5 mmHg FINDINGS Left Ventricle Left ventricular ejection fraction is estimated at 40-45 %. Mildly increased septal wall thickness. Left ventricular cavity size normal. Mildly reduced global left ventricular systolic function. Abnormal septal motion consistent with a right ventricle pacemaker. Right Ventricle Mild right ventricular dilatation. Mild pulmonary hypertension. Right Atrium Moderate right atrial dilatation. Catheter/pacemaker wire in the right atrial cavity. Left Atrium Moderate left atrial dilatation. Mitral Valve Structurally normal mitral valve. Mild mitral regurgitation. No mitral stenosis. Aortic Valve Trileaflet aortic valve. No aortic valve stenosis or regurgitation. Diffuse thickening (sclerosis) of the aortic valve cusps without reduced excursion. Tricuspid Valve Structurally normal tricuspid valve. No tricuspid stenosis. Akae-eo-gzeieaju tricuspid regurgitation. Pulmonic Valve Structurally normal pulmonic valve. No pulmonic stenosis. No pulmonic regurgitation. Pericardium No pericardial or pleural effusion. Aorta Mild aortic dilatation at the level of the sinuses of valsalva (root). CONCLUSIONS Left ventricular ejection fraction 40 to 45% Mildly increased left ventricular wall thickness Mild mitral regurgitation Mild to moderate tricuspid regurgitation RVSP 40 Previewed by: Dr. Baron Suarez DO (Electronically Signed) Final Date: 05 February 2025 16:31
--- NOTE | 2025-02-05 19:18 | P.DS ---
Providers Date of admission: 02/03/25 20:30 Expected date of discharge: 02/05/25 Attending physician: Kenneth Ramirez Consults: 02/03/25 20:26 Consult Physician Routine Consulting Provider: Arturo Holt Consult Reason/Comments: Pacemaker, Watchman device Do you want consulting provider notified?: Yes, Notify in am Primary care physician: Darnell Ventura [facility] Course: Chief Complaint: Passed out Very pleasant 84-year-old patient who follows with Dr. Darnell Ventura. Chronic medical condition include atrial fibrillation, asthma, GERD, hyperte nsion, rheumatoid arthritis, gout. Patient had a watchman placed in June 2024. And also a has a pacemaker. Yesterday he warmed up some soup and a microwave was walking back to his dining table and does not remember anything after that. He passed out. He thinks he may be on the ground for about 1 hour. He used his cell phone to call the EMS. Does not remember any chest pain palpitations prior to that. Patient's been having feelings of lightheadedness off and on. Patient does follow with his inspector circuitry negative , out of [place]. February 05: Patient Zaroxolyn was discontinued. Patient did confirm he has been feeling very thirsty at home. And dizzy. He will remain on Lasix. Fluid restriction. Underwent pacemaker interrogation. Unremarkable. Cleared by cardiology. Patient will follow-up with his inspector circuitry negative. Discussion and discharge planning more than 35 minutes Social history: Lives alone. 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 Did smoke in the remote past Physical examination: VITAL SIGNS: 97.4, 75, 17, 122 x 72, 90% room air GENERAL: BMI 32.7, sitting up comfortable. EYES: Pupils equal. Conjunctiva sophie l. HEENT: External appearance of nose and ears normal, oral cavity grossly normal. Slight bruising on top of the head posteriorly. NECK: JVD not raised; masses not palpable. HEART: First and second heart sounds are normal; no edema. LUNGS: Respiratory rate normal; clear to auscultation. ABDOMEN: Soft, nontender, liver spleen not palpable, no masses palpable. PSYCH: Alert and oriented x3; mood and affect sophie l. MUSCULOSKELETAL:No Clubbing/cyanosis;muscles-grossly intact INVESTIGATIONS, reviewed in the clinical context: 2D echo: EF 40 to 45%. February 05: Potassium 3.6 BUN 27 creatinine 0.86 February 04, 2025: White count 7.3 hemoglobin 11.9 platelets 129 sodium 137 potassium 3.8 BUN 32 creatinine 1.04 Troponin I 0.015, 0.014 UA: Negative Chest x-ray film personally reviewed by me-borderline cardiomegaly. Pacemaker. Head cervical spine CT: DJD CT angio chest: Negative PE. Left atrial appendage occlusion devicemoderate severe coronary artery atherosclerosis. EKG tracing personally reviewed by me-atrial and ventricular pacemaker Assessment plan: - Episode of spontaneous unconsciousness. Patient thinks he was passed out for about 1 hour. Has been feeling lightheaded. Intermittently.: Likely from dehydration Pacemaker interrogated. Normal Patient is on Zaroxolyn, and Lasix. Patient elevated BUN. Likely prerenal. That could explain his dizziness intermittent. Will DC Zaroxolyn. Patient will receive IV fluids. Put the patient on 2000 cc fluid restriction - Dehydration. Admission BUN was 45. With gentle hydration and holding Zaroxolyn down to 27. Zaroxolyn discontinued - Chronic congestive heart failure from systolic dysfunction EF 40 to 45%. Continue Lasix. Zaroxolyn discontinued. - Essential hypertension Cardizem CD1 80 mg a day. Lopressor 50 mg twice daily. Cozaar 50 mg nightly - Chronic insomnia Trazodone as needed - Chronic gout Allopurinol - BPH Flomax 0.4 mg a day - Atrial fibrillation history of Watchman procedure. - Pacemaker - GERD Prilosec - Full code Disposition: Home Past Medical History Past Medical History: Atrial Fibrillation, Asthma, Cancer, GERD/Reflux, Hypertension, Pneumonia, Rheumatoid Arthritis (RA) Additional Past Medical History / Comment(s): gout, skin cancer History of Any Multi-Drug Resistant Organisms: None Reported Past Surgical History: Appendectomy, Back Surgery, Cholecystectomy, Tonsillectomy Additional Past Surgical History / Comment(s): Tendon cut surgically in Lt foot, sinus surgery , small tumor removed from bone in RT hand, skin cancer removed from back Past Anesthesia/Blood Transfusion Reactions: Previous Problems w/ Anesthesia Additional Past Anesthesia/Blood Transfusion Reaction / Comment(s): severe headache post sinus surgery Past Psychological History: Anxiety Smoking Status: Former smoker Past Alcohol Use History: None Reported Past Drug Use History: None Reported Plan - Discharge Summary New Discharge Prescriptions: Continue Tamsulosin [Flomax] 0.4 mg PO DAILY Omeprazole [PriLOSEC] 20 mg PO BID allopurinoL [Zyloprim] 300 mg PO DAILY Losartan [Cozaar] 50 mg PO HS Potassium Chloride [K-Tab ER] 20 meq PO DAILY Metoprolol Tartrate [Lopressor] 50 mg PO BID Fluticasone Propionate [Fluticasone Propionate Nasal [place]] 1 spr EA NOSTRIL DAILY Furosemide [Lasix] 20 mg PO BID dilTIAZem HCL [Cartia Xt] 180 mg PO DAILY Aspirin 81 mg PO DAILY Magnesium Oxide [Mag-Ox] 400 mg PO BID traMADol HCL 50 mg PO DAILY PRN PRN Reason: Pain traZODone HCL 100 mg PO HS PRN PRN Reason: Insomnia Gabapentin 300 mg PO TID Discontinued metOLazone [Zaroxolyn] 5 mg PO DAILY Discharge Medication List Omeprazole [PriLOSEC] 20 mg PO BID 03/26/14 [History] Tamsulosin [Flomax] 0.4 mg PO DAILY 03/26/14 [History] allopurinoL [Zyloprim] 300 mg PO DAILY 03/26/14 [History] Losartan [Cozaar] 50 mg PO HS 07/20/15 [History] Fluticasone Propionate [Fluticasone Propionate Nasal [place]] 1 spr EA NOSTRIL DAILY 10/20/23 [History] Metoprolol Tartrate [Lopressor] 50 mg PO BID 10/20/23 [History] Potassium Chloride [K-Tab ER] 20 meq PO DAILY 10/20/23 [History] traMADol HCL 50 mg PO DAILY PRN 10/20/23 [History] traZODone HCL 100 mg PO HS PRN 10/20/23 [History] Aspirin 81 mg PO DAILY 02/03/25 [History] Furosemide [Lasix] 20 mg PO BID 02/03/25 [History] Gabapentin 300 mg PO TID 02/03/25 [History] Magnesium Oxide [Mag-Ox] 400 mg PO BID 02/03/25 [History] dilTIAZem HCL [Cartia Xt] 180 mg PO DAILY 02/03/25 [History] Follow up Appointment(s)/Referral(s): Baron Suarez DO [STAFF PHYSICIAN] - 1 Week (Office will call with appointment date and time) Darnell Ventura MD [Primary Care Provider] - 1-2 days Los Nick MD [REFERRING] - 1 Week Activity/Diet/Wound Care/Special Instructions: fluid restrict 2000 cc/day Discharge Disposition: HOME SELF-CARE
== END 2025-02-05 16:23 | disposition home or self-care (01) ==
LOC: EC 15:50 → 6NMEDSUR 20:30
PROVIDERS: ADMIT Hospitalist; ATTEND Hospitalist
DX: R55 Syncope and collapse (principal); E86.0 Dehydration; I11.0 Hypertensive heart disease with heart failure; I50.22 Chronic systolic (congestive) heart failure; F51.04 Psychophysiologic insomnia; M10.9 Gout, unspecified; I48.91 Unspecified atrial fibrillation; M25.511 Pain in right shoulder; F41.9 Anxiety disorder, unspecified; I25.10 Atherosclerotic heart disease of native coronary artery without angina pectoris; J45.909 Unspecified asthma, uncomplicated; K21.9 Gastro-esophageal reflux disease without esophagitis; M06.9 Rheumatoid arthritis, unspecified; N40.0 Benign prostatic hyperplasia without lower urinary tract symptoms; Z79.82 Long term (current) use of aspirin; Z79.899 Other long term (current) drug therapy; Z85.828 Personal history of other malignant neoplasm of skin; Z87.891 Personal history of nicotine dependence; Z95.0 Presence of cardiac pacemaker; Z88.5 Allergy status to narcotic agent; Z88.8 Allergy status to other drugs, medicaments and biological substances; Z88.0 Allergy status to penicillin
CPT/HCPCS: 96372; 99285; 36415; 93005; 80053 ×2; 80048; 82550; 83735; 84100; 84484 ×2; 85025 ×2; 85610; 85730; 81003; 73030; 71046; 72125; 70450; 71275; G0378 ×3; C8929; J1650; Q9957; Q9967; 93306